=== PATIENT | female | born 1965 | race Caucasian/White ===

== ENCOUNTER 2021-10-17 10:00 | Outpatient (CLI) | payer BC | END 2021-10-17 10:01 | disposition home or self-care (01) | LOC: CSHMAMMO 10:00 | PROVIDERS: ATTEND Student in an Organized Health Care Education/Training Program | DX: Z12.31 Encounter for screening mammogram for malignant neoplasm of breast (principal) | CPT/HCPCS: 77063; 77067 ==

== ENCOUNTER 2023-10-22 10:27 | Outpatient (CLI) | payer BC | END 2023-10-22 10:28 | disposition home or self-care (01) | LOC: CSHMAMMO 10:27 | PROVIDERS: ATTEND Student in an Organized Health Care Education/Training Program | DX: Z12.31 Encounter for screening mammogram for malignant neoplasm of breast (principal); M85.89 Other specified disorders of bone density and structure, multiple sites | CPT/HCPCS: 77063; 77067; 77080 ==